=== PATIENT | male | born 2000 | race Hispanic/Latino ===

== ENCOUNTER 2019-12-26 09:58 | Emergency (ER) | payer OTHER ==
[~2019-12-26] VITALS: Ht 175.3 cm; Wt 68.2 kg
--- NOTE | 2019-12-26 11:03 | REP ---
CT BRAIN WITHOUT CONTRAST: HISTORY: Facial trauma. FINDINGS: There is a minimally depressed fracture of the right side of the nasal bone visible at the bottom edge of the field of view. Visualized paranasal sinuses are clear. No other facial, orbital or calvarial fracture is seen. There is no evidence of intracranial hemorrhage. No extra-axial fluid collection is seen. Lateral, third, fourth ventricles are normal in size and position. No contusion, infarct or mass is seen. IMPRESSION: Right nasal bone fracture. Associated right periorbital soft tissue swelling. Otherwise negative noncontrast head CT. No intracranial injury seen. Electronically Signed by Maciel Bonilla MD 12/26/2019 12:13 P
--- NOTE | 2019-12-26 11:04 | REP ---
MAXILLOFACIAL CT STUDY WITHOUT CONTRAST: HISTORY: Facial trauma. FINDINGS: There are bilateral nasal bone fractures. The right side of the nasal bone is minimally depressed. There is right malar and periorbital soft tissue swelling. The inferior maxillary spine is intact. No zygomatic arch fracture is seen. Orbital margins are intact. No intraorbital hematoma is appreciated. The paranasal sinus silvestre are clear. There is minimal mucosal thickening affecting the maxillary sinuses bilaterally. No mandibular fracture is seen. No skull base fracture noted. IMPRESSION: Nasal fracture with minimal depression on the right side. Mild mucosal thickening in the maxillary sinuses bilaterally. No other fracture seen. Right periorbital and preseptal soft tissue swelling. Electronically Signed by Maciel Bonilla MD 12/26/2019 12:13 P
[2019-12-26] MEDS ORDERED: LIDOCAINE W/EPINEPHRINE 1% 20ML VIAL SC ONE (11:45)
[2019-12-26 12:40] VITALS: BP 143/72
== END 2019-12-26 12:42 | disposition home or self-care (01) ==
LOC: M ED 09:58 → EDBD 09:58 → M ED 12:42
DX: S01.81XA Laceration without foreign body of other part of head, initial encounter (principal); S02.2XXA Fracture of nasal bones, initial encounter for closed fracture; S06.0X9A Concussion with loss of consciousness of unspecified duration, initial encounter; Y04.0XXA Assault by unarmed brawl or fight, initial encounter; Y92.9 Unspecified place or not applicable; Y93.9 Activity, unspecified; Y99.9 Unspecified external cause status